=== PATIENT | male | born 1955 | race Hispanic/Latino ===

== ENCOUNTER 2020-12-23 03:47 | Emergency (ER) | payer OTHER ==
[2020-12-23 03:49] VITALS: BP 138/57
[2020-12-23] MEDS ORDERED: HYDROCODONE/ACETAMINOPHEN 5/325 MG TAB PO ONE (04:45)
[2020-12-23 04:51] VITALS: BP 133/56
[2020-12-23] MEDS ORDERED: CEFU500T67 PO (05:09)
[2020-12-23] MEDS ORDERED: CIPR7.5D OT (05:09)
== END 2020-12-23 05:24 | disposition home or self-care (01) ==
LOC: EDH 04:07
DX: H60.91 Unspecified otitis externa, right ear (principal); F17.200 Nicotine dependence, unspecified, uncomplicated; Z90.5 Acquired absence of kidney; Z85.528 Personal history of other malignant neoplasm of kidney